=== PATIENT | male | born 1980 | race Caucasian/White ===

== ENCOUNTER 2017-10-16 15:23 | Emergency (ER) | payer MEDICARE ==
[2017-10-16] MEDS ORDERED: Zithromax 250 MG TABLET PO ONE (15:47)
[2017-10-16] MEDS ORDERED: Robitussin AC Syrup Unit Dose Cup PO PRN (15:48)
[2017-10-16] MEDS ORDERED: Rocephin 1000 MG INJ IM ONE (15:49)
--- NOTE | 2017-10-16 15:55 | ERPHSYRPT ---
- History of Present Illness Time Seen by Provider: 10/16/17 15:32 Source: patient Exam Limitations: no limitations Patient Subjective Stated Complaint: cough, sore throat for two days. states is coughing up yellow sputum. Triage Nursing Assessment: ambulated to room per self. skin w/d, color normal, resp easy. occasional cough noted. Physician History: FOR THE PAST 3 DAYS PT HAS HAD NASAL CONGESTION; TODAY A SORE THROAT AND COUGH PRODUCTIVE OF YELLOW-GREEN PHLEGM. PT DENIES CHEST PAIN, SHORTNESS OF AIR, ABDOMINAL PAIN. Allergies/Adverse Reactions: No Known Drug Allergies Allergy (Verified 10/16/17 15:40) Home Medications: Clonazepam [Klonopin] 0.5 mg PO TID 07/12/15 [History] Propranolol HCl 10 mg [Inderal 10 MG] 10 mg PO DAILY 07/12/15 [History] Hx Tetanus, Diphtheria Vaccination/Date Given: Yes Hx Influenza Vaccination/Date Given: No Hx Pneumococcal Vaccination/Date Given: No - Review of Systems Ears, Nose, & Throat: Nose Congestion, Throat Pain Respiratory: Cough, No Dyspnea Cardiac: No Chest Pain Abdominal/Gastrointestinal: No Abdominal Pain All Other Systems: Reviewed and Negative - Past Medical History Pertinent Past Medical History: Yes Neurological History: Other Other Medical History: tremors - Past Surgical History Past Surgical History: No - Social History Smoking Status: Current every day smoker How long have you smoked: 20 Exposure to second hand smoke: No Drug Use: none Patient Lives Alone: No - Nursing Vital Signs Nursing Vital Signs: Initial Vital Signs Temperature 98.3 F 10/16/17 15:37 Pulse Rate 101 H 10/16/17 15:37 Respiratory Rate 20 10/16/17 15:37 Blood Pressure 123/86 10/16/17 15:37 O2 Sat by Pulse Oximetry 98 10/16/17 15:37 Pain Scale Pain Intensity 0 - Physical Exam General Appearance: alert Eye Exam: PERRL/EOMI Ears, Nose, Throat Exam: TMs normal, moist mucous membranes, pharyngeal erythema , other (RHINORRHEA) Neck Exam: normal inspection Respiratory Exam: lungs clear Cardiovascular Exam: normal heart sounds Gastrointestinal/Abdomen Exam: soft, normal bowel sounds Back Exam: normal range of motion Extremity Exam: normal inspection, No pedal edema Neurologic Exam: alert, cooperative Skin Exam: warm, dry SpO2 Interpretation: normal SpO2: 98 Oxygen Delivery: Room Air - Course Nursing assessment & vital signs reviewed: Yes Ordered Tests: Medication Summary Generic Name Dose Route Start Last Admin Trade Name Freq PRN Reason Stop Dose Admin Azithromycin 500 mg 10/16/17 15:47 Zithromax 250 Mg Tablet PO 10/16/17 15:48 STAT ONE Ceftriaxone Sodium 1,000 mg 10/16/17 15:49 Rocephin 1000 Mg Inj IM 10/16/17 15:50 STAT ONE Guaifenesin/Codeine Phosphate 10 ml 10/16/17 15:48 Robitussin Ac Syrup Unit Dose Cup PO 11/15/17 15:47 Q4H PRN PRN COUGH - Departure Time of Disposition: 15:55 Departure Disposition: Home Clinical Impression: PHARYNGITIS, RHINITIS Condition: Stable Critical Care Time: No Referrals: [facility] [employer] [facility] [Primary Care Provider] - Instructions: Sore Throat, Adult (DC) Additional Instructions: FOLLOW UP WITH PRIVATE DOCTOR TOMORROW. Prescriptions: Guaifenesin/Codeine Phosphate [Robitussin AC Syrup] 10 ml PO Q4H PRN PRN #120 ml PRN Reason: Cough Azithromycin 250 mg [Zithromax 250 MG TABLET] 250 mg PO ZPACK #6 tablet
[2017-10-16] MEDS ORDERED: Zithromax 250 MG TABLET ONE (16:00)
[2017-10-16] MEDS ORDERED: Rocephin 1000 MG INJ ONE (16:00)
[2017-10-16] MEDS ORDERED: Robitussin AC Syrup Unit Dose Cup ONE (16:00)
[2017-10-16 16:14] VITALS: BP 135/80; PULSE 92; O2SAT 97
== END 2017-10-16 16:14 | disposition home or self-care (01) ==
LOC: ED 15:23
DX: R25.1 Tremor, unspecified (principal); Z72.0 Tobacco use
CPT/HCPCS: 96372; 99283; 99284; J0696; A9270-GY

== ENCOUNTER 2019-02-16 21:16 | Emergency (ER) | payer MEDICARE | END 2019-02-16 23:05 | disposition left against medical advice (07) | LOC: ED 21:16 | DX: Z53.9 Procedure and treatment not carried out, unspecified reason (principal) | CPT/HCPCS: 99281 ==